=== PATIENT | male | born 1970 | race Caucasian/White ===

== ENCOUNTER 2020-07-14 21:52 | Emergency (ER) | payer OTHER ==
[2020-07-14 22:19] LABS: Appearance CLEAR (CLEAR); Bilirubin NEGATIVE (NEGATIVE); Blood NEGATIVE Ery/ul (0-5); Glucose NEGATIVE (NEGATIVE); Hyaline Casts 0-2 /LPF (0-2); Ketones NEGATIVE (NEGATIVE); Leukocyte Esterase NEGATIVE (NEGATIVE); Mucus SLIGHT /HPF (NEGATIVE); Nitrite NEGATIVE (NEGATIVE); Protein,Urine Dip NEGATIVE (Negative); Specific Gravity 1.014 (1.005-1.025); Urobilinogen NEGATIVE mg/dL (0-1)
[2020-07-14 22:29] LABS: Amphetamine,Urine NEGATIVE (NEGATIVE); Barbiturate,Urine NEGATIVE (NEGATIVE); Benzodiazepine,Urine NEGATIVE (NEGATIVE); Cocaine,Urine NEGATIVE (NEGATIVE); Methadone,Urine NEGATIVE (NEGATIVE); Opiate,Urine NEGATIVE (NEGATIVE); PCP,Urine NEGATIVE (NEGATIVE); THC,Urine NEGATIVE (NEGATIVE)
[2020-07-14 22:36] LABS: BASOPHIL % 0.6 % (0.0-0.4); Basophil (Absolute #) 0.05 (0-0.4); Eosinophil % 2.5 % (0.00-5.0); Eosinophil (Absolute #) 0.21 (0-0.5); Hematocrit 44.5 % (42-50); Hemoglobin 15.1 gm/dl (12.5-18.0); Lymphocyte (Absolute #) 1.73 (1.0-4.6); Lymphocytes % 20.4 % (24.0-44.0); Mean Cell Volume 94.3 fl (78-100); Mean Corpuscular Hgb Concent. 33.9 g/dl (32-36); Mean Platelet Volume 11.2 fl (7.5-11.0); Monocyte (Absolute #) 0.88 (0.0-1.3); Monocytes % 10.4 % (0.0-12.0); Neutrophil % 66.1 % (36.0-66.0); Platelet Count 192 K/mm3 (150-450); Red Blood Count 4.72 M/mm3 (4.1-5.6); Red Cell Distribution Width 13.7 % (11.5-14.0); White Blood Count 8.5 K/mm3 (4.0-10.5)
[2020-07-14 22:40] LABS: ETHYL ALCOHOL 30 mg/dL (0-10)
[2020-07-14 22:41] LABS: ACETAMINOPHEN < 10 ug/ml (10-30); SALICYLATE < 1.0 mg/dL (2-20)
[2020-07-14 22:48] LABS: ALBUMIN 4.1 g/dL (3.5-5.0); ALKALINE PHOSPHATASE 64 U/L (38-126); ANION GAP 14.6 MEQ/L (5-15); BLOOD UREA NITROGEN 15 mg/dL (9-20); CHLORIDE 105 mmol/L (98-107); Calcium 9.9 mg/dL (8.4-10.2); Carbon Dioxide 22 mmol/L (22-30); EST GLOMERULAR FILTRATION RATE > 60.0 ML/MIN; Glucose 137 mg/dL (74-106); Potassium 3.1 mmol/L (3.5-5.1); SGOT/AST 20 U/L (17-59); SGPT/ALT 15 U/L (0-50); SODIUM 138 mmol/L (137-145)
[2020-07-14] MEDS ORDERED: Klor Con 10 MEQ PO ONE ×2 (22:52→22:55)
--- NOTE | 2020-07-14 23:05 | ERPHSYRPT ---
- History of Present Illness Time Seen by Provider: 07/14/20 22:10 Source: patient Exam Limitations: no limitations Patient Subjective Stated Complaint: pt states "I was going to visit my dad tomorrow." public safety police states that pt estranged called and states that pt left suicial notes for her and other family members Triage Nursing Assessment: pt ambulated into the er; pt is axo x4; ETOH; flat affect; withdrawn; c/o SI; pt denies plan; pt states, "I'm going to see my father tomorrow."; officer states, pt father's anniversary is tomorrow; clear lung sounds; clear heart tones; active bowel sounds; hypertensive Physician History: Patient is a 49-year-old male presents to our ED for evaluation and treatment of suicidal ideation. Patient was brought in by police stating that informed police that patient left suicide notes regarding his own . Patient expressed that his father 9 years ago tomorrow and that he planned on visiting his father in [facility]. Patient has a flat affect. Patient states he was in the . He reportedly suffers from PTSD. Patient admits to have been drinking alcohol this evening. I personally observed patient suicide note. Patient denies homicidal ideation. He has no complaints otherwise. No chest pain or shortness of breath. No nausea vomiting or diaphoresis. He denies sick substances. Patient voices no other complaints or concerns at this time. Timing/Duration: today Severity of Symptoms-Max: moderate Severity of Symptoms-Current: mild Context related to: spouse, living circumstances Suicidal thoughts: gesture Associated Symptoms: frustrated, suicidal ideation Previous symptoms: no prior history Allergies/Adverse Reactions: Penicillins Allergy (Verified 07/14/20 21:58) Hives Home Medications: Citalopram Hydrobromide [Celexa] 40 mg PO DAILY 07/14/20 [History] Diltiazem HCl [Cardizem] 240 mg PO DAILY 07/14/20 [History] Meloxicam 7.5 mg PO DAILY 07/14/20 [History] Omeprazole 20 mg PO DAILY 07/14/20 [History] Quetiapine Fumarate [Seroquel] 50 mg PO HS 07/14/20 [History] Sumatriptan Succinate [Imitrex] 25 mg PO BID PRN 07/14/20 [History] lisinopriL [Lisinopril] 15 mg PO DAILY 07/14/20 [History] Hx Tetanus, Diphtheria Vaccination/Date Given: Yes Hx Influenza Vaccination/Date Given: No Hx Pneumococcal Vaccination/Date Given: Yes (2019) Travel Risk - International Travel Have you traveled outside of the country in past 3 weeks: No - Coronavirus Screening Are you exhibiting any of the following symptoms?: No Close contact with a COVID-19 positive Pt in past 14-21 Days: No - Past Medical History Cardiac History: High Cholesterol, Hypertension GI Medical History: GERD Psycho-Social History: Anxiety, Depression Other Medical History: PTSD, TBI - Past Surgical History Past Surgical History: Yes Musculoskeletal: Orthopedic Surgery Other Surgical History: scrapnel removal multiple times - Social History Smoking Status: Never smoker Exposure to second hand smoke: No Drug Use: none Patient Lives Alone: No - Review of Systems Constitutional: No Symptoms, No Fever, No Chills Eyes: No Symptoms Ears, Nose, & Throat: No Symptoms Respiratory: No Symptoms, No Cough, No Dyspnea Cardiac: No Symptoms, No Chest Pain, No Edema, No Syncope Abdominal/Gastrointestinal: No Symptoms, No Abdominal Pain, No Nausea, No Vomiting, No Diarrhea Genitourinary Symptoms: No Symptoms, No Dysuria Musculoskeletal: No Symptoms, No Back Pain, No Neck Pain Skin: No Symptoms, No Rash Neurological: No Symptoms, No Dizziness, No Focal Weakness, No Sensory Changes Psychological: No Symptoms Endocrine: No Symptoms Hematologic/Lymphatic: No Symptoms Immunological/Allergic: No Symptoms All Other Systems: Reviewed and Negative - Nursing Vital Signs Nursing Vital Signs: Initial Vital Signs Temperature 98.6 F 07/14/20 22:05 Pulse Rate 105 H 07/14/20 22:05 Respiratory Rate 18 07/14/20 22:05 Blood Pressure 210/116 07/14/20 22:05 O2 Sat by Pulse Oximetry 97 07/14/20 22:05 Pain Scale Pain Intensity 0 - Physical Exam General Appearance: no apparent distress Eyes, Ears, Nose, Throat Exam: normal ENT inspection, moist mucous membranes Neck Exam: normal inspection, non-tender, supple Respiratory Exam: normal breath sounds, lungs clear, No respiratory distress Cardiovascular Exam: regular rate/rhythm, other (Are elevated on the ekg monitor. 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, oriented x 3 Appearance: appropriate appearance, no memory impairment, No impaired recent memory, No impaired remote memory Behavior/Eye Contact/Speech: alert & cooperative, cooperative, good eye contact, normal speech, No avoids eye contact Thoughts/Hallucinations: normal thought pattern, no apparent hallucination Skin Exam: normal color, warm, dry, No rash SpO2 Interpretation: normal SpO2: 97 O2 Delivery: Room Air - Course Nursing assessment & vital signs reviewed: Yes EKG Interpreted by Me: RATE ([id number]), Sinus Tach, NORMAL AXIS, NORMAL INTERVALS Ordered Tests: Active Orders 24 hr Category Date Time Status EKG-ER Only STAT Care 07/14/20 22:08 Active ACETAMINOPHEN Stat Lab 07/14/20 22:28 Completed CBC W DIFF Stat Lab 07/14/20 22:28 Completed CMP Stat Lab 07/14/20 22:28 Completed ETHYL ALCOHOL Stat Lab 07/14/20 22:28 Completed Potassium Stat Lab 07/15/20 01:20 Completed SALICYLATE Stat Lab 07/14/20 22:28 Completed UA W/RFX UR CULTURE Stat Lab 07/14/20 22:09 Completed Urine Triage Profile Stat Lab 07/14/20 22:09 Completed Medication Summary Generic Name Dose Route Start Last Admin Trade Name Freq PRN Reason Stop Dose Admin Nitroglycerin 1 gm 07/15/20 10:00 07/15/20 01:53 Nitro-Bid 2% Ud Packets TOP 08/14/20 09:59 1 gm Q12HT JOSETTE Administration Discontinued Medications Generic Name Dose Route Start Last Admin Trade Name Freq PRN Reason Stop Dose Admin Diphenhydramine HCl 50 mg 07/15/20 01:49 07/15/20 01:52 Benadryl 25 Mg Capsule PO 07/15/20 01:50 50 mg STAT ONE Administration Diphenhydramine HCl Confirm 07/15/20 01:50 Benadryl 25 Mg Capsule Administered 07/15/20 01:51 Dose 50 mg .ROUTE .STK-MED ONE Hydralazine HCl 12.5 mg 07/14/20 23:24 07/14/20 23:41 Apresoline 25 Mg Tablet PO 07/14/20 23:25 12.5 mg ONCE STA Administration Hydralazine HCl 12.5 mg 07/15/20 01:49 07/15/20 02:07 Apresoline 25 Mg Tablet PO 07/15/20 01:50 12.5 mg ONCE ONE Administration Potassium Chloride 40 meq 07/14/20 22:52 07/14/20 22:55 Klor Con 10 Meq PO 07/14/20 22:53 40 meq STAT ONE Administration Potassium Chloride Confirm 07/14/20 22:55 Klor Con 10 Meq Administered 07/14/20 22:56 Dose 40 meq PO .STK-MED ONE Lab/Rad Data: Laboratory Result Diagrams 07/14/20 22:28 07/15/20 01:20 Laboratory Results 07/15/20 07/14/20 07/14/20 Range/Units 01:20 22:28 22:28 WBC (4.0-10.5) K/mm3 RBC (4.1-5.6) M/mm3 Hgb (12.5-18.0) gm/dl Hct (42-50) % MCV (78-100) fl MCH (26-32) pg MCHC (32-36) g/dl RDW (11.5-14.0) % Plt Count (150-450) K/mm3 MPV (7.5-11.0) fl Gran % (36.0-66.0) % Eos # (Auto) (0-0.5) Absolute Lymphs (auto) (1.0-4.6) Absolute Monos (auto) (0.0-1.3) Lymphocytes % (24.0-44.0) % Monocytes % (0.0-12.0) % Eosinophils % (0.00-5.0) % Basophils % (0.0-0.4) % Absolute Granulocytes (1.4-6.9) Basophils # (0-0.4) Sodium 138 (137-145) mmol/L Potassium 3.6 3.1 L (3.5-5.1) mmol/L Chloride 105 (98-107) mmol/L Carbon Dioxide 22 (22-30) mmol/L Anion Gap 14.6 (5-15) MEQ/L BUN 15 (9-20) mg/dL Creatinine 1.00 (0.66-1.25) mg/dL Estimated GFR > 60.0 ML/MIN Glucose 137 H (74-106) mg/dL Calcium 9.9 (8.4-10.2) mg/dL Total Bilirubin 0.40 (0.2-1.3) mg/dL AST 20 (17-59) U/L ALT 15 (0-50) U/L Alkaline Phosphatase 64 (38-126) U/L Serum Total Protein 7.0 (6.3-8.2) g/dL Albumin 4.1 (3.5-5.0) g/dL Urine Color (YELLOW) Urine Appearance (CLEAR) Urine pH (5-6) Ur Specific [place] (1.005-1.025) Urine Protein (Negative) Urine Ketones (NEGATIVE) Urine Blood (0-5) Tony/ul Urine Nitrite (NEGATIVE) Urine Bilirubin (NEGATIVE) Urine Urobilinogen (0-1) mg/dL Ur Leukocyte Esterase (NEGATIVE) Urine WBC (Auto) (0-5) /HPF Urine RBC (Auto) (0-2) /HPF U Hyaline Cast (Auto) (0-2) /LPF U Epithel Cells (Auto) (FEW) /HPF Urine Bacteria (Auto) (NEGATIVE) /HPF Urine Mucus (Auto) (NEGATIVE) /HPF Urine Culture Reflexed (NO) Urine Glucose (NEGATIVE) mg/dL Salicylates < 1.0 L (2-20) mg/dL Urine Opiates Level (NEGATIVE) Ur Methadone (NEGATIVE) Acetaminophen < 10 L (10-30) ug/ml Urine Barbiturates (NEGATIVE) Ur Phencyclidine (PCP) (NEGATIVE) Urine Amphetamine (NEGATIVE) U Benzodiazepine Level (NEGATIVE) Urine Cocaine (NEGATIVE) Urine Marijuana (THC) (NEGATIVE) Ethyl Alcohol 30 H (0-10) mg/dL 07/14/20 07/14/20 07/14/20 Range/Units 22:28 22:09 22:09 WBC 8.5 (4.0-10.5) K/mm3 RBC 4.72 (4.1-5.6) M/mm3 Hgb 15.1 (12.5-18.0) gm/dl Hct 44.5 (42-50) % MCV 94.3 (78-100) fl MCH 32.0 (26-32) pg MCHC 33.9 (32-36) g/dl RDW 13.7 (11.5-14.0) % Plt Count 192 (150-450) K/mm3 MPV 11.2 H (7.5-11.0) fl Gran % 66.1 H (36.0-66.0) % Eos # (Auto) 0.21 (0-0.5) Absolute Lymphs (auto) 1.73 (1.0-4.6) Absolute Monos (auto) 0.88 (0.0-1.3) Lymphocytes % 20.4 L (24.0-44.0) % Monocytes % 10.4 (0.0-12.0) % Eosinophils % 2.5 (0.00-5.0) % Basophils % 0.6 (0.0-0.4) % Absolute Granulocytes 5.60 (1.4-6.9) Basophils # 0.05 (0-0.4) Sodium (137-145) mmol/L Potassium (3.5-5.1) mmol/L Chloride (98-107) mmol/L Carbon Dioxide (22-30) mmol/L Anion Gap (5-15) MEQ/L BUN (9-20) mg/dL Creatinine (0.66-1.25) mg/dL Estimated GFR ML/MIN Glucose (74-106) mg/dL Calcium (8.4-10.2) mg/dL Total Bilirubin (0.2-1.3) mg/dL AST (17-59) U/L ALT (0-50) U/L Alkaline Phosphatase (38-126) U/L Serum Total Protein (6.3-8.2) g/dL Albumin (3.5-5.0) g/dL Urine Color YELLOW (YELLOW) Urine Appearance CLEAR (CLEAR) Urine pH 5.0 (5-6) Ur Specific [place] 1.014 (1.005-1.025) Urine Protein NEGATIVE (Negative) Urine Ketones NEGATIVE (NEGATIVE) Urine Blood NEGATIVE (0-5) Tony/ul Urine Nitrite NEGATIVE (NEGATIVE) Urine Bilirubin NEGATIVE (NEGATIVE) Urine Urobilinogen NEGATIVE (0-1) mg/dL Ur Leukocyte Esterase NEGATIVE (NEGATIVE) Urine WBC (Auto) NONE (0-5) /HPF Urine RBC (Auto) NONE (0-2) /HPF U Hyaline Cast (Auto) 0-2 (0-2) /LPF U Epithel Cells (Auto) NONE (FEW) /HPF Urine Bacteria (Auto) NONE (NEGATIVE) /HPF Urine Mucus (Auto) SLIGHT (NEGATIVE) /HPF Urine Culture Reflexed NO (NO) Urine Glucose NEGATIVE (NEGATIVE) mg/dL Salicylates (2-20) mg/dL Urine Opiates Level NEGATIVE (NEGATIVE) Ur Methadone NEGATIVE (NEGATIVE) Acetaminophen (10-30) ug/ml Urine Barbiturates NEGATIVE (NEGATIVE) Ur Phencyclidine (PCP) NEGATIVE (NEGATIVE) Urine Amphetamine NEGATIVE (NEGATIVE) U Benzodiazepine Level NEGATIVE (NEGATIVE) Urine Cocaine NEGATIVE (NEGATIVE) Urine Marijuana (THC) NEGATIVE (NEGATIVE) Ethyl Alcohol (0-10) mg/dL - Progress Progress: improved Progress Note: 07/15/20 04:06 Patient reassessed. Patient denied homicidal suicidal ideation. Patient states that his letters of intent were written about 3 weeks ago and that he was drunk at that time. Telemental was performed and Dr. Adam advised discharge. We have been working on decreasing patient's blood pressure. Patient's blood pressure systolic is still elevated. We advised patient admission for further evaluation and treatment of his elevated blood pressure. Patient declined. Patient states he is going to leave and stated he would sign out AGAINST MEDICAL ADVICE. Patient is of sound mind. Patient is appropriate to make informed and independent medical decisions. Patient understand that leaving AGAINST MEDICAL ADVICE can result in delayed diagnosis, worsening of symptoms, increased risk of morbidity, mortality, short long-term disability including . In spite of his risks patient has decided to leave AGAINST MEDICAL ADVICE. Patient understand that he may return to our ED at any time for reevaluation and pos sible admission. Patient agrees to follow-up with his primary care doctor within 48 hours for reevaluation of his blood pressure. [facility] regarding the recommendations of Dr. Shen. Dr. Shen advised the [facility]up [facility] for [facility] evaluation and treatment. [facility]. We will discharge patient home per patient's request and Dr. Shen was advised. Patient is denying homicidal suicidal ideation and is adamant that his letters were written 3 weeks ago. Counseled pt/family regarding: drug and/or alcohol abuse, lab results, diagnosis, rad results - Departure Departure Disposition: AMA Clinical Impression: Suicidal ideation, Hypokalemia, Alcohol use, Hypertension Condition: Stable Critical Care Time: No Referrals: [facility]OSPITAL,'S [Primary Care Provider] - Additional Instructions: Discharge/Care Plan ALYSIA SHEN was seen on 07/15/20 in the Emergency Room. The patient was counseled regarding Diagnosis,Lab results, Imaging studies, need for follow up and when to return to the Emergency Room. Prescriptions given: Discharge Note I have spoken with the patient and/or caregivers. I have explained the patient's condition, diagnosis and treatment plan based on the information available to me at this time. I have answered the patient's and/or caregiver's questions and addressed any concerns. The patient and/or caregivers have as good understanding of the patient's diagnosis, condition and treatment plan as can be expected at this point. The vital signs have been stable. The patient's condition is stable and appropriate for discharge from the emergency department. The patient will pursue further outpatient evaluation with the primary care physician or other designated or consulting physician as outlined in the discharge instructions. The patient and/or caregivers are agreeable to this plan of care and follow-up instructions have been explained in detail. The patient and/or caregivers have received these instruction. The patient/and or caregivers are aware that any significant change in condition or worsening of symptoms should prompt an immediate return to this or the closest emergency department or call 911.
[2020-07-14] MEDS ORDERED: Apresoline 25 MG TABLET PO STA (23:24)
[2020-07-15] MEDS ORDERED: NITRO-BID 2% UD PACKETS ONE (01:49)
[2020-07-15] MEDS ORDERED: BENADRYL 25 MG CAPSULE PO ONE (01:49)
[2020-07-15] MEDS ORDERED: Apresoline 25 MG TABLET PO ONE (01:49)
[2020-07-15] MEDS ORDERED: BENADRYL 25 MG CAPSULE ONE (01:50)
[2020-07-15 02:10] VITALS: O2SAT 97
[2020-07-15 04:09] VITALS: BP 204/122; PULSE 98
[2020-07-15] MEDS ORDERED: NITRO-BID 2% UD PACKETS TOP SCH (10:00)
== END 2020-07-15 04:26 | disposition home or self-care (01) ==
LOC: ED 21:52
DX: R45.851 Suicidal ideations (principal); E87.6 Hypokalemia; Z72.89 Other problems related to lifestyle; I10 Essential (primary) hypertension
CPT/HCPCS: 36415; 80053; 80307; 81001; 84132; 85025; 90791; 93005; 99284; G0480; Q3014; A9270-GY